=== PATIENT | male | born 1945 | race Caucasian/White ===

== ENCOUNTER → 2016-07-29 | Outpatient (CLI) | payer MEDICARE ==
[2016-07-29 10:52] LABS: Basophils # (A) 0.1 k/uL (0-0.2); Basophils % (A) 1 %; CH 28.8; CHCM 33.1; Eosinophils # (A) 0.4 k/uL (0-0.7); Eosinophils % (A) 5 %; HCT 38.4 % (39.0-53.0); HDW 3.02; HGB 12.7 gm/dL (13.0-17.5); Luc # (Auto) 0.11; Luc % (Auto) 1; Lymphocytes # (A) 1.2 k/uL (1.0-4.8); Lymphocytes % (A) 16 %; MCHC 33.1 g/dL (31.0-37.0); MCV 87.4 fL (80.0-100.0); Mean Platelet Volume 8.7; Monocytes # (A) 0.5 k/uL (0-1.0); Monocytes % (A) 7 %; Neutrophils # (A) 5.4 k/uL (1.3-7.7); Neutrophils % (A) 70 %; RBC 4.39 m/uL (4.30-5.90); RDW 15.1 % (11.5-15.5); WBC 7.7 k/uL (3.8-10.6); WBC (Perox) 7.44
[2016-07-29 10:54] LABS: Appearance,Urine Turbid (Clear); Bacteria,Urine Moderate /hpf; Bilirubin,Urine Negative (Negative); Glucose,Urine (UA) Negative (Negative); Ketones,Urine Negative (Negative); Leukocyte Esterase,Urine Large (Negative); Mucus,Urine Few /hpf; Nitrite,Urine Negative (Negative); Particle Count 7306; Protein,Urine 2+ (Negative); Specific Gravity,Urine 1.016 (1.001-1.035); UA Billing (MACRO vs. MICRO) MICRO; Urobilinogen,Urine <2.0 mg/dL (<2.0); WBC,Urine >182 /hpf (0-5)
[2016-07-29 11:24] LABS: Anion Gap 13 mmol/L; Blood Urea Nitrogen 24 mg/dL (9-20); Calcium 9.5 mg/dL (8.4-10.2); Carbon Dioxide 28 mmol/L (22-30); Chloride 102 mmol/L (98-107); Glucose 149 mg/dL (74-99); Non-African American GFR(MDRD) >60 (>60 ml/min/1.73 sqM); Potassium 4.7 mmol/L (3.5-5.1); Sodium 143 mmol/L (137-145)
== END | disposition home or self-care (01) ==
LOC: LABPAT 09:26
PROVIDERS: ATTEND Urology
DX: Z01.812 Encounter for preprocedural laboratory examination (principal); R35.0 Frequency of micturition; E10.9 Type 1 diabetes mellitus without complications; N35.9 Urethral stricture, unspecified; I10 Essential (primary) hypertension
CPT/HCPCS: 80048; 81001; 85025; 87086

== ENCOUNTER 2016-08-05 09:39 | Day surgery (SDC) | payer MEDICARE ==
[~2016-08-05 09:39] MED LIST: DEXAMETHASONE SOD PHOSPHATE 10 MG/ML 1 ML VIAL IV ONE; GENTAMICIN 220 MG in SODIUM CHLORIDE 0.9% 100 ML IVPB ONE; HYDROmorphone 1 MG/ML 1 ML SYRINGE IVP PRN; LACTATED RINGERS 1,000 ML IV SCH; LIDOCAINE 1% 20 ML VIAL (10MG/ML) FOR IV START INTRADERMA PRN
[2016-08-05 10:21] LABS: Glucose,Whole Blood 101 mg/dL (75-99)
[2016-08-05] MEDS ORDERED: FLUCONAZOLE IN NACL,ISO-OSM 100 MG in SALINE 1 50ML.BAG IVPB STA (10:23)
[2016-08-05] MEDS ORDERED: ONDANSETRON 4 MG/2 ML VIAL IVP ONE (10:25)
[2016-08-05] MEDS ORDERED: PROPOFOL 10 MG/ML 20 ML VIAL IV ONE (10:43)
[2016-08-05] MEDS ORDERED: fentaNYL (PF) 50 MCG/ML 2 ML AMP ONE (10:43)
[2016-08-05] MEDS ORDERED: SUCCINYLCHOLINE CHLORIDE 100 MG/5 ML SYR IV ONE (10:43)
[2016-08-05] MEDS ORDERED: ePHEDrine 50 MG/ML 1 ML AMP ONE (10:43)
[2016-08-05] MEDS ORDERED: LIDOCAINE 1% INJ 10MG/ML (20 ML MDV) ONE (10:43)
[2016-08-05] MEDS ORDERED: GLYCOPYRROLATE 0.2 MG/ML 2 ML VIAL ONE (10:43)
[2016-08-05] MEDS ORDERED: MIDAZOLAM 2 MG/2 ML VIAL ONE (10:43)
--- NOTE | 2016-08-05 12:00 | P.OP ---
Date of Procedure: 08/05/16 Preoperative Diagnosis: Chronic urethral stricture disease, chronic urine retention Postoperative Diagnosis: Same Procedure(s) Performed: Cystoscopy, direct vision internal urethrotomy, percutaneous placement of suprapubic cystostomy, placement of urethral Guadalupe Disposition: PACU Indications for Procedure: The patient is a 70-year-old with chronic panurethral stricturing that is severe. He has had multiple DVIU's in the past. He declines referral to a major reconstructive urologist for stricture repair. He would like a catheter. Do not recommend a urethral catheter due to the stricture therefore he will have a suprapubic cystostomy. Try to do this through the cysto with the notched sound. Description of Procedure: The patient is brought to the operating suite and given a successful general endotracheal anesthesia. He's placed lithotomy position with a sterile genital and abdominal prep and drape. I passed the 20-Belarusian direct vision urethrotome into the urethral meatus and it passes just beyond the fossa navicularis. There is panurethral stricture all the way to the verumontanum. With the direct vision urethrotome I cut at 12:00 to slowly advance the urethrotome into the bulbar urethra. The strictures extremely dense there. I passed an 035 wire into the bladder. Over the wire at 12:00 I cut back through the membranous urethra. I then am able to pass the scope into the bladder. The prostate is not obstructing. The bladder wall is trabeculated. I removed the direct vision urethrotome and attempt to pass a curved notch sound into the bladder but cannot do so. I reintroduced urethrotome and cut further in the membranous urethra but again failed to pass a curved notch sound. A false passage anterior at the membranous urethra. I thus reintroduced the scope into the bladder. I filled the bladder with water. Make a small cut above the pubis. I passed the percutaneous needle into the bladder. I removed the inner sheath and passed the tiny wire into the bladder. Cystoscopy confirmed endoscopically. Over the wire I passed the sheath to allow me to pass an 038 Super Stiff wire into the bladder. This is all done percutaneously and visualize directly with the endoscope. Once I have the 038 Super Stiff wire into the bladder over this I passed a [id number] NephroMax dilating balloon and dilated the tract into the bladder. Over the track I passed the working sheath into the bladder and its position is seen endoscopically. I removed the dilating balloon and pass an 18-Belarusian Guadalupe through the working sheath into the bladder its position is confirmed endoscopically. I removed the working sheath, inflate the balloon and pull the Guadalupe back into proper position of the bladder. It is then secured to the skin with 2-0 silk. Through the cystoscope I passed an 035 wire into the bladder. Over the wire I passed a 16-Belarusian Guadalupe into the bladder. Both catheters I attached a Guadalupe bag. The patient awake and returned recovery in good condition. He tolerated procedure well be discharged home upon recovery. Urethral catheter can be removed in 48 hours. The suprapubic tube will be in place for a month before being changed.
[2016-08-05 12:11] VITALS: RESP 16; TEMP 97.6
[2016-08-05 12:15] LABS: Glucose,Whole Blood 98 mg/dL (75-99)
[2016-08-05 13:43] VITALS: BP 183/76; PULSE 66
== END 2016-08-05 14:17 | disposition home or self-care (01) ==
LOC: OR 09:39
PROVIDERS: ATTEND Urology
DX: N35.9 Urethral stricture, unspecified (principal); R33.9 Retention of urine, unspecified; N39.0 Urinary tract infection, site not specified; I10 Essential (primary) hypertension; E11.9 Type 2 diabetes mellitus without complications; E03.9 Hypothyroidism, unspecified; M19.90 Unspecified osteoarthritis, unspecified site; K21.9 Gastro-esophageal reflux disease without esophagitis; I25.10 Atherosclerotic heart disease of native coronary artery without angina pectoris; Z95.1 Presence of aortocoronary bypass graft; Z79.2 Long term (current) use of antibiotics; Z79.84 Long term (current) use of oral hypoglycemic drugs; Z79.1 Long term (current) use of non-steroidal anti-inflammatories (NSAID); Z79.4 Long term (current) use of insulin; Z79.899 Other long term (current) drug therapy; Z88.5 Allergy status to narcotic agent
CPT/HCPCS: 52276; 51102; C1769 ×2; J2250; J1100; J2001; J3010; J1450; J1580; J0330; J2704

== ENCOUNTER 2016-09-17 02:25 | Inpatient (IN) | payer MEDICARE ==
[2016-09-17] MEDS ORDERED: NITROGLYCERIN OINT 1 INCH/GM PACKET TOPICAL STA (02:34)
[2016-09-17 03:02] LABS: Basophils # (A) 0.1 k/uL (0-0.2); Basophils % (A) 1 %; CH 28.4; CHCM 32.9; Eosinophils # (A) 0.6 k/uL (0-0.7); Eosinophils % (A) 5 %; HCT 41.6 % (39.0-53.0); HDW 3.13; HGB 13.3 gm/dL (13.0-17.5); Luc # (Auto) 0.18; Luc % (Auto) 1; Lymphocytes # (A) 1.2 k/uL (1.0-4.8); Lymphocytes % (A) 10 %; MCH 27.7 pg (25.0-35.0); MCV 86.5 fL (80.0-100.0); Mean Platelet Volume 8.1; Monocytes # (A) 0.5 k/uL (0-1.0); Monocytes % (A) 4 %; Neutrophils # (A) 9.9 k/uL (1.3-7.7); Neutrophils % (A) 79 %; RBC 4.81 m/uL (4.30-5.90); WBC 12.4 k/uL (3.8-10.6); WBC (Perox) 12.93
--- NOTE | 2016-09-17 03:02 | XR ---
EXAM: XR Chest, 1 View. CLINICAL HISTORY: Reason: dyspnea TECHNIQUE: Frontal view of the chest. COMPARISON: 06/10/2016 FINDINGS: Lungs: Hypoventilatory examination. No focal consolidation, significant pleural effusion, or pneumothorax. Mild pulmonary vascular congestion. Pleural space: See above. Heart: Stable postoperative mediastinum and cardiomediastinal silhouette. Mediastinum: See above. Bones/joints: No acute osseous abnormality. IMPRESSION: Stable cardiomegaly. Mild pulmonary vascular congestion. No focal consolidation.
[2016-09-17 03:08] LABS: ALT 26 U/L (21-72); AST 20 U/L (17-59); Alkaline Phosphatase 124 U/L (38-126); Anion Gap 16 mmol/L; Blood Urea Nitrogen 26 mg/dL (9-20); Carbon Dioxide 25 mmol/L (22-30); Chloride 101 mmol/L (98-107); Glucose 201 mg/dL (74-99); Magnesium 1.5 mg/dL (1.6-2.3); Non-African American GFR(MDRD) >60 (>60 ml/min/1.73 sqM); Potassium 4.1 mmol/L (3.5-5.1); Sodium 142 mmol/L (137-145); Total Protein 8.4 g/dL (6.3-8.2)
[2016-09-17 03:32] LABS: Creatine Kinase MB 1.2 ng/mL (0.0-2.4); Troponin I 0.015 ng/mL (0.000-0.034)
[2016-09-17 04:00] LABS: INR 1.2 (<1.1); Prothrombin Time 11.5 sec (9.0-12.0)
[2016-09-17] MEDS ORDERED: RX INFO: IV CONTRAST WAS GIVEN 1 EACH MISC MISCELLANE PRN (04:15)
[2016-09-17] MEDS ORDERED: HYDROcodone/APAP 7.5-325MG 1 EACH TAB PO PRN (04:16)
[2016-09-17 04:23] LABS: Amorphous Sediment,Urine Rare /hpf; Appearance,Urine Cloudy (Clear); Bacteria,Urine Rare /hpf; Bilirubin,Urine Negative (Negative); Glucose,Urine (UA) Trace (Negative); Ketones,Urine Negative (Negative); Leukocyte Esterase,Urine Small (Negative); Mucus,Urine Few /hpf; Nitrite,Urine Positive (Negative); Particle Count 26613; Protein,Urine 3+ (Negative); RBC,Urine 34 /hpf (0-5); Specific Gravity,Urine 1.019 (1.001-1.035); Squamous Epithelial Cell,Urine 1 /hpf (0-4); UA Billing (MACRO vs. MICRO) MICRO; WBC,Urine 57 /hpf (0-5)
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
[2016-09-17] MEDS ORDERED: PANTOPRAZOLE 40 MG TABLET PO SCH (04:30)
[2016-09-17] MEDS: FUROSEMIDE 10 MG/ML 4 ML VIAL IV SCH ×2 (05:19→17:37)
--- NOTE | 2016-09-17 05:44 | CT ---
EXAM: CT Angiography Chest With Intravenous Contrast. CLINICAL HISTORY: Reason: dyspnea TECHNIQUE: Axial computed tomographic angiography images of the chest with intravenous contrast using pulmonary embolism protocol. CTDI is 8.54, 24. 19, 24.19, 193.54, 1358.55 mGy and DLP is 1609 mGy-cm MIP reconstructed images were created and reviewed. COMPARISON: CXR 09/17/2016 FINDINGS: Limitations: Timing of the contrast bolus and respiratory motion. Pulmonary arteries: No central pulmonary embolus. Aorta: Atherosclerosis of the thoracic aorta, coronary arteries, and great vessels. No thoracic aortic dissection. Lungs: Bilateral dependent densities are favored to represent atelectasis. Minimal smooth interlobular septal thickening is compatible with mild interstitial edema. No mass. Pleural space: Small bilateral pleural effusions. No pneumothorax. Heart: No pericardial effusion. Mediastinum: Postoperative mediastinum. Bones/joints: No acute fracture. No dislocation. Soft tissues: Unremarkable. Lymph nodes: Unremarkable. No enlarged lymph nodes. Gallbladder and bile ducts: The gallbladder is absent. Spleen: Splenomegaly. IMPRESSION: No central pulmonary embolus. Small bilateral pleural effusions. Mild interstitial edema.
[2016-09-17 06:25] LABS: Glucose,Whole Blood 244 mg/dL (75-99)
[2016-09-17] MEDS ORDERED: NON-FORMULARY DRUG (Metformin Hcl [Metformin Hcl] 1,000 MG) PO SCH (09:00)
[2016-09-17] MEDS: PENTOXIFYLLINE 400 MG TABLET.ER PO SCH ×3 (09:05→17:37)
[2016-09-17] MEDS: FLUCONAZOLE 100 MG TAB PO SCH (09:05)
[2016-09-17] MEDS: LEVOTHYROXINE 75 MCG TAB PO SCH (09:06)
[2016-09-17] MEDS: MULTIVITAMINS, THERA 1 EACH TAB PO SCH (09:06)
[2016-09-17] MEDS: ATENOLOL 50 MG TAB PO SCH (09:06)
[2016-09-17 09:57] LABS: Creatine Kinase MB 8.7 ng/mL (0.0-2.4); Troponin I 0.785 ng/mL (0.000-0.034)
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
[2016-09-17 12:24] LABS: Glucose,Whole Blood 340 mg/dL (75-99)
[2016-09-17] MEDS: NITROGLYCERIN OINT 1 INCH/GM PACKET TOPICAL SCH ×4 (12:29→20:25)
[2016-09-17] MEDS: INSULIN LISPRO (humaLOG) 300 UNIT/3 ML VIAL SQ SCH ×3 (12:30→20:48)
[2016-09-17] MEDS: ASPIRIN 81 MG CHEW PO SCH (12:30)
[2016-09-17] MEDS ORDERED: HEPARIN SODIUM,PORCINE 5,000 UNIT/ML 1 ML VIAL IV ONE (15:12)
[2016-09-17] MEDS ORDERED: HEPARIN SODIUM,PORCINE 5,000 UNIT/ML 1 ML VIAL IV PRN (15:12)
[2016-09-17 16:04] LABS: Creatine Kinase MB 10.6 ng/mL (0.0-2.4); Troponin I 2.25 ng/mL (0.000-0.034)
[2016-09-17] MEDS: hydrALAZINE HCL 25 MG TAB PO SCH ×2 (16:08→20:24)
[2016-09-17] MEDS: HEPARIN SODIUM,PORCINE/D5W PMX 25,000 UNIT in DEXTROSE/WATER 1 500ML.BAG IV SCH (16:09)
[2016-09-17 16:47] LABS: Hemoglobin A1C 7.5 % (4.2-6.1)
--- NOTE | 2016-09-17 17:06 | CONS ---
DATE OF CONSULTATION: ATTENDING: Dr. Evens Lopez Mr. Wang is a 71-year-old male with known history of coronary artery disease, status post coronary artery bypass grafting in 1999, history of hypertension, hyperlipidemia, and diabetes mellitus, who presented with symptoms of acute dyspnea. Apparently, he went to bed and suddenly woke up very short of breath. He had no associated chest discomfort, came into the emergency room and was noted to be in heart failure. Patient is average in exercise tolerance, has some dyspnea on exertion. He has chronic peripheral edema. No PND. He has chronic orthopnea related to his lower back pain. He has no dizziness, palpitation. No syncope. He has been followed by Dr. Glass at [facility] and apparently has not been told that he had a prior myocardial infarction nor congestive heart failure, but I do not have the evaluation of his prior echo done not too long ago. He has no history of documented arrhythmia. His coronary risk factors are remarkable for hypertension, hyperlipidemia, and diabetes mellitus. His medications include metformin 1 gram twice a day, glipizide 2.5 mg daily, amlodipine 10 mg daily, simvastatin 40 mg daily, Trental 400 mg 3 times a day, lisinopril 20 mg daily, levothyroxine, insulin, cephalexin and Tenormin. REVIEW OF SYSTEMS: RESPIRATORY SYSTEM: Had dyspnea on exertion. No recent wheezing or cough. GI: No recent GI bleeding. No peptic ulcer disease. SYSTEM: No dysuria or hematuria. NERVOUS SYSTEM: No history of stroke or seizure. PHYSICAL EXAMINATION: He is a 71-year-old male, alert, oriented, in no apparent distress, morbidly obese. Blood pressure 150/90 with a heart rate in the 80s. HEAD: Normocephalic. EYES: Sclerae anicteric. NECK: Good upstroke. No bruit. LUNGS: With rales at both bases. HEART: Regular rate and rhythm. S1, S2 with systolic murmur heard at the base. No diastolic murmur. No rub. ABDOMEN: Supple, obese, nontender. EXTREMITIES: +2 edema with chronic skin changes. Lab data revealed a BUN and creatinine of 26 and 0.9, magnesium 1.5, troponin 0.015 and 0.785. Hemoglobin of 13.3, white blood cells 12.4. EKG revealed sinus mechanism with a left bundle branch block. Chest x-ray shows evidence of congestive heart failure as well as cardiomegaly. IMPRESSION: 1. Acute episode of congestive heart failure with mild elevation of troponin. Patient with known history of coronary artery disease raising possibility of ischemic event. 2. Status post coronary artery bypass grafting 17 years ago. 3. History of hypertension. 4. Hyperlipidemia. 5. Diabetes mellitus. 6. Left bundle branch block, probably chronic. RECOMMENDATIONS: I will try to obtain the prior work-up. I will obtain an echocardiogram with Doppler. He will be started on heparin. He will be continued on diuresis as initiated. His renal function will be followed closely. I will add to his regimen hydralazine to optimize his blood pressure. The patient would most likely require coronary angiography to assess his status because of his presentation, I have discussed those findings with him. He would like to talk to his primary director of institutional giving and make a decision where he wants this to be done. In the meantime, I will try to obtain the prior work-up. Thank you for this consult. We will follow with you.
[2016-09-17 17:07] LABS: Glucose,Whole Blood 351 mg/dL (75-99)
[2016-09-17] MEDS ORDERED: ATENOLOL 25 MG TAB PO SCH (17:30)
[2016-09-17] MEDS ORDERED: Magnesium Replacement Protocol 1 EACH MISC MISCELLANE PRN (19:41)
[2016-09-17 20:44] LABS: Glucose,Whole Blood 275 mg/dL (75-99)
[2016-09-17] MEDS: MAGNESIUM SULFATE-D5W PMX 1 GM in DEXTROSE/WATER 1 100ML.BAG IVPB SCH ×2 (20:47→23:03)
[2016-09-17] MEDS ORDERED: INSULIN GLARGINE 100 UNIT/ML 10 ML VIAL SQ SCH (21:00)
[2016-09-17] MEDS ORDERED: ATORVASTATIN 20 MG TAB PO SCH (21:00)
[2016-09-17] MEDS ORDERED: amLODIPine 10 MG TAB PO SCH (21:00)
[2016-09-17] MEDS ORDERED: ATORVASTATIN 40 MG TAB PO SCH (21:00)
[2016-09-17] MEDS ORDERED: LISINOPRIL 20 MG TAB PO SCH (21:00)
[2016-09-17 22:11] LABS: Potassium 4.1 mmol/L (3.5-5.1)
[2016-09-18] MEDS: FUROSEMIDE 10 MG/ML 4 ML VIAL IV SCH (04:55)
[2016-09-18 06:35] LABS: Basophils % (A) 0 %; CH 28.4; CHCM 32.7; Eosinophils # (A) 0.2 k/uL (0-0.7); Eosinophils % (A) 1 %; HCT 37.5 % (39.0-53.0); HDW 2.96; HGB 11.9 gm/dL (13.0-17.5); Luc # (Auto) 0.17; Luc % (Auto) 1; Lymphocytes # (A) 1.3 k/uL (1.0-4.8); Lymphocytes % (A) 10 %; MCH 27.8 pg (25.0-35.0); MCHC 31.8 g/dL (31.0-37.0); MCV 87.3 fL (80.0-100.0); Mean Platelet Volume 7.7; Monocytes # (A) 0.4 k/uL (0-1.0); Monocytes % (A) 4 %; Neutrophils # (A) 10.4 k/uL (1.3-7.7); Neutrophils % (A) 84 %; RBC 4.29 m/uL (4.30-5.90); RDW 15.1 % (11.5-15.5); WBC 12.5 k/uL (3.8-10.6); WBC (Perox) 13.35
[2016-09-18 06:51] LABS: Anion Gap 13 mmol/L; Blood Urea Nitrogen 33 mg/dL (9-20); Calcium 9.5 mg/dL (8.4-10.2); Carbon Dioxide 30 mmol/L (22-30); Chloride 96 mmol/L (98-107); Glucose 201 mg/dL (74-99); Non-African American GFR(MDRD) >60 (>60 ml/min/1.73 sqM); Sodium 139 mmol/L (137-145)
[2016-09-18 06:53] LABS: Potassium 4.2 mmol/L (3.5-5.1)
[2016-09-18 06:54] LABS: Glucose,Whole Blood 208 mg/dL (75-99)
[2016-09-18] MEDS: ATENOLOL 50 MG TAB PO SCH (08:05)
[2016-09-18] MEDS: LEVOTHYROXINE 75 MCG TAB PO SCH (08:05)
[2016-09-18] MEDS: ASPIRIN 81 MG CHEW PO SCH (08:05)
[2016-09-18] MEDS: PENTOXIFYLLINE 400 MG TABLET.ER PO SCH ×2 (08:06→11:57)
[2016-09-18] MEDS: hydrALAZINE HCL 25 MG TAB PO SCH (08:06)
[2016-09-18] MEDS: FLUCONAZOLE 100 MG TAB PO SCH (08:07)
[2016-09-18] MEDS: INSULIN LISPRO (humaLOG) 300 UNIT/3 ML VIAL SQ SCH ×2 (08:07→11:59)
[2016-09-18] MEDS: MULTIVITAMINS, THERA 1 EACH TAB PO SCH (08:07)
[2016-09-18 08:34] VITALS: RESP 19; TEMP 97
[2016-09-18] MEDS ORDERED: PNEUMOCOCCAL VACC-PNEUMOVAX 23 25 MCG/0.5 ML VIAL IM ONE (09:00)
[2016-09-18] MEDS ORDERED: ISOSORBIDE MONONITRATE ER 30 MG TAB.ER.24H PO SCH (09:30)
--- NOTE | 2016-09-18 10:08 | ECHOF ---
Referral Reason:cad MEASUREMENTS -------- HEIGHT: 175.3 cm WEIGHT: 153.8 kg BP: 150/98 RVIDd: 3.6 cm (< 3.3) IVSd: 1.5 cm (0.6 - 1.1) LVIDd: 5.4 cm (3.9 - 5.3) LVPWd: 1.5 cm (0.6 - 1.1) IVSs: 2.3 cm LVIDs: 3.5 cm LVPWs: 2.5 cm LA Diam: 3.9 cm (2.7 - 3.8) LAESV Index (A-L): 34.90 ml/m Ao Diam: 3.3 cm (2.0 - 3.7) AV Cusp: 2.5 cm (1.5 - 2.6) MV EXCURSION: 21.518 mm (> 18.000) MV EF SLOPE: 133 mm/s (70 - 150) EPSS: 0.8 cm RAP: 5.00 mmHg RVSP: 33.01 mmHg FINDINGS -------- This was a technically difficult study with suboptimal apical views. The left ventricular size is normal. There is moderate concentric left ventricular hypertrophy. Overall left ventricular systolic function is low-normal with, an EF between 50 - 55 %. The right ventricle is mildly enlarged. LA is moderately dilated 34-39 ml/m2 The right atrium was not well visualized. 1.5mg of Definity was utilized for enhancement of images Aortic valve is trileaflet and is mildly thickened. The mitral valve leaflets are mildly thickened. Mild mitral annular calcification present. There is trace to mild mitral regurgitation. Mild tricuspid regurgitation present. Right ventricular systolic pressure is normal at < 35 mmHg. The pulmonic valve was not well visualized. The aortic root size is normal. There is no pericardial effusion. CONCLUSIONS -------- 1. This was a technically difficult study with suboptimal apical views. 2. The mitral valve leaflets are mildly thickened. 3. Mild mitral annular calcification present. 4. There is trace to mild mitral regurgitation. 5. Mild tricuspid regurgitation present. 6. Right ventricular systolic pressure is normal at < 35 mmHg. 7. The pulmonic valve was not well visualized. 8. The aortic root size is normal. 9. There is no pericardial effusion. 10. The left ventricular size is normal. 11. There is moderate concentric left ventricular hypertrophy. 12. Overall left ventricular systolic function is low-normal with, an EF between 50 - 55 %. 13. The right ventricle is mildly enlarged. 14. LA is moderately dilated 34-39 ml/m2 15. The right atrium was not well visualized. 16. 1.5mg of Definity was utilized for enhancement of images 17. Aortic valve is trileaflet and is mildly thickened. TRANSFER IRON OPERATOR: Becky Montana RDCS
[2016-09-18 11:11] LABS: Glucose,Whole Blood 252 mg/dL (75-99)
[2016-09-18 11:37] VITALS: BMI 50.0
[2016-09-18 11:40] LABS: Anion Gap 11 mmol/L; Blood Urea Nitrogen 33 mg/dL (9-20); Calcium 9.3 mg/dL (8.4-10.2); Carbon Dioxide 29 mmol/L (22-30); Chloride 95 mmol/L (98-107); Glucose 256 mg/dL (74-99); Non-African American GFR(MDRD) >60 (>60 ml/min/1.73 sqM); Potassium 3.9 mmol/L (3.5-5.1); Sodium 135 mmol/L (137-145)
[2016-09-18] MEDS: NITROGLYCERIN OINT 1 INCH/GM PACKET TOPICAL SCH (12:02)
--- NOTE | 2016-09-18 12:07 | P.PN ---
Subjective Principal diagnosis: Pulmonary edema This is a 71-year-old gentleman with known history of coronary artery disease and prior bypass surgery, hypertension, hyperlipidemia, diabetes, who presented to the hospital primarily with symptoms of progressive dyspnea. He was found to be in pulmonary edema and initiated on IV Lasix. Patient follows with a miller head assistant wet process in [facility]. Also ruled in for non-Q-wave myocardial infarction. Echocardiogram with Doppler study was performed which revealed an ejection fraction of 50-55%. Moderate concentric LVH. Patient continues to be on IV Lasix, 40 mg every 12 hourly. Blood pressure today 154/78 with a heart rate in the 60s. 96% on room air. Patient was seen and examined today, continues to have bilateral rales and peripheral edema. Patient was quite eager to be discharged home to follow-up with his miller head assistant wet process, Dr. Guerrier had a lengthy discussion with the patient explaining that he needed to be diuresed further prior to being stable enough for discharged. I also explained to the patient that he did have a myocardial infarction and may require cardiac catheterization. If the patient does go home today he was advised that he needs to do so , against medical advice. Objective - Vital Signs Vital signs: Vital Signs Temp 97 F L 09/18/16 08:00 Pulse 67 09/18/16 04:00 Resp 19 09/18/16 08:00 BP 156/79 09/18/16 08:00 Pulse Ox 96 09/18/16 08:00 Intake & Output 09/17/16 09/18/16 09/18/16 18:59 06:59 18:59 Intake Total 257 298 Output Total 1700 1200 Balance -1700 -943 298 Weight 153.9 kg 153.7 kg 153.7 kg Intake: Intake, IV Titration 257 Amount Heparin Sodium,Porcine/ 257 D5w Pmx 25,000 unit In Dextrose/Water 1 500ml. bag @ 6.5 UNITS/KG/HR 20 mls/hr IV .Q24H [facility] Rx#: [id number] Oral 298 Output: Urine 1700 1200 Other: Voiding Method Indwelling Catheter Indwelling Catheter Indwelling Catheter - Exam PHYSICAL EXAMINATION: HEENT: Head is atraumatic, normocephalic. Pupils equal, round. Neck is supple. There is elevated jugular venous pressure. HEART EXAMINATION: Heart S1 and S2 systolic murmur is heard. CHEST EXAMINATION: Lungs reveal rales to bilateral bases. ABDOMEN: Soft, obese, nontender. Bowel sounds are heard. No organomegaly noted. EXTREMITIES: 2+ peripheral pulses with 2+ evidence of peripheral edema and no calf tenderness noted. Chronic venous stasis. NEUROLOGIC patient is awake, alert and oriented -3. . - Labs CBC & Chem 7: 09/18/16 06:19 09/18/16 10:57 Labs: Abnormal Lab Results - Last 24 Hours (Table) 09/17/16 09/17/16 09/17/16 Range/Units 12:22 15:12 17:06 WBC (3.8-10.6) k/uL RBC (4.30-5.90) m/uL Hgb (13.0-17.5) gm/dL Hct (39.0-53.0) % Neutrophils # (1.3-7.7) k/uL Sodium (137-145) mmol/L Chloride (98-107) mmol/L BUN (9-20) mg/dL Glucose (74-99) mg/dL POC Glucose (mg/dL) 340 H 351 H (75-99) mg/dL CK-MB (CK-2) 10.6 H* (0.0-2.4) ng/mL Troponin I 2.250 H* (0.000-0.034) ng/mL 09/17/16 09/17/16 09/18/16 Range/Units 20:36 21:44 06:19 WBC (3.8-10.6) k/uL RBC (4.30-5.90) m/uL Hgb (13.0-17.5) gm/dL Hct (39.0-53.0) % Neutrophils # (1.3-7.7) k/uL Sodium (137-145) mmol/L Chloride 96 L 96 L (98-107) mmol/L BUN 33 H (9-20) mg/dL Glucose 201 H (74-99) mg/dL POC Glucose (mg/dL) 275 H (75-99) mg/dL CK-MB (CK-2) (0.0-2.4) ng/mL Troponin I (0.000-0.034) ng/mL 09/18/16 09/18/16 09/18/16 Range/Units 06:19 06:37 10:57 WBC 12.5 H (3.8-10.6) k/uL RBC 4.29 L (4.30-5.90) m/uL Hgb 11.9 L (13.0-17.5) gm/dL Hct 37.5 L (39.0-53.0) % Neutrophils # 10.4 H (1.3-7.7) k/uL Sodium 135 L (137-145) mmol/L Chloride 95 L (98-107) mmol/L BUN 33 H (9-20) mg/dL Glucose 256 H (74-99) mg/dL POC Glucose (mg/dL) 208 H (75-99) mg/dL CK-MB (CK-2) (0.0-2.4) ng/mL Troponin I (0.000-0.034) ng/mL /10/02 Range/Units 11:09 WBC (3.8-10.6) k/uL RBC (4.30-5.90) m/uL Hgb (13.0-17.5) gm/dL Hct (39.0-53.0) % Neutrophils # (1.3-7.7) k/uL Sodium (137-145) mmol/L Chloride (98-107) mmol/L BUN (9-20) mg/dL Glucose (74-99) mg/dL POC Glucose (mg/dL) 252 H (75-99) mg/dL CK-MB (CK-2) (0.0-2.4) ng/mL Troponin I (0.000-0.034) ng/mL Assessment and Plan (1) Diastolic CHF, acute on chronic Status: Acute (2) Hx of CABG Status: Acute (3) Non-Q wave infarction Status: Acute (4) HTN (hypertension) Status: Acute (5) Hyperlipemia Status: Acute (6) Diabetes Status: Acute (7) LBBB (left bundle branch block) Status: Acute Plan: From cardiology's perspective, patient has been advised to stay in the hospital , continue diuresis with IV Lasix. Check daily lytes BUN and creatinine. May require cardiac catheterization once the congestive heart failure has cleared. DNP note has been reviewed, I agree with a documented findings and plan of care. Patient was seen and examined.
[2016-09-18 13:08] VITALS: BP 173/79; PULSE 58
[2016-09-18] MEDS: HEPARIN SODIUM,PORCINE/D5W PMX 25,000 UNIT in DEXTROSE/WATER 1 500ML.BAG IV SCH (14:16)
--- NOTE | 2016-09-19 07:47 | DS ---
DATE OF ADMISSION: 09/17/2016 DATE OF DISCHARGE: 09/18/2016 Date left against medical advice: 09/18/2016 FINAL DIAGNOSIS(ES): 1. Acute congestive heart failure exacerbation with underlying acute myocardial infarction. 2. Acute non-Q-wave myocardial infarction, present on admission. 3. Diabetes mellitus type 2, chronically on insulin. 4. Gastroesophageal reflux disease. 5. Essential hypertension, uncontrolled on presentation. 6. Primary osteoarthritis multiple joints, bilaterally. 7. Hypothyroidism. 8. Hiatal hernia with chronic urethral stricture with chronic suprapubic catheter. The patient showing asymptomatic bacteria. 9. 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 10. Coronary artery disease with prior history of CABG in 2000. 11. Morbid obesity with body mass index 50.1. This is a patient who presented with CHF along with acute [place]. Troponin went from up from 0.7 to 2.2. Patient given Lasix and other medications. Patient seen by Dr. Guerrier from cardiology. They were considered cardiac catheterization when CHF better. Patient in the meantime decided to leave against medical advice. On exam, earlier today. RESPIRATORY: Effort normal. LUNGS: Diminished breath sounds. PSYCH: Alert and oriented x3. DISPOSITION: Patient left AGAINST MEDICAL ADVICE.
== END 2016-09-18 15:28 | disposition home health service (06) | DRG 280 ==
LOC: EC 02:25 → 6SEL 04:12 → 6ICU 05:51 → 6SEL 18:21
PROVIDERS: ADMIT Hospitalist; ATTEND Hospitalist
PROC: 3E0234Z Introduction of Serum, Toxoid and Vaccine into Muscle, Percutaneous Approach (ICD-10-PCS; principal; 2016-09-17)
DX: I21.4 Non-ST elevation (NSTEMI) myocardial infarction (principal); I50.33 Acute on chronic diastolic (congestive) heart failure; E11.42 Type 2 diabetes mellitus with diabetic polyneuropathy; Z68.43 Body mass index [BMI] 50.0-59.9, adult; I44.7 Left bundle-branch block, unspecified; I11.0 Hypertensive heart disease with heart failure; E66.01 Morbid (severe) obesity due to excess calories; Z95.1 Presence of aortocoronary bypass graft; Z23 Encounter for immunization; E03.9 Hypothyroidism, unspecified; K21.9 Gastro-esophageal reflux disease without esophagitis; M19.91 Primary osteoarthritis, unspecified site; K44.9 Diaphragmatic hernia without obstruction or gangrene; N35.9 Urethral stricture, unspecified; I25.10 Atherosclerotic heart disease of native coronary artery without angina pectoris; L30.9 Dermatitis, unspecified; Z71.3 Dietary counseling and surveillance; Z93.51 Cutaneous-vesicostomy status; Z90.49 Acquired absence of other specified parts of digestive tract; Z98.42 Cataract extraction status, left eye; Z88.5 Allergy status to narcotic agent; Z87.442 Personal history of urinary calculi; E78.5 Hyperlipidemia, unspecified; Z79.84 Long term (current) use of oral hypoglycemic drugs; Z79.4 Long term (current) use of insulin; Z79.1 Long term (current) use of non-steroidal anti-inflammatories (NSAID); Z79.899 Other long term (current) drug therapy
CPT/HCPCS: 36415; 71010; 71275; 80048; 80051; 80053; 81001; 82550; 82553; 83036; 83735; 83880; 84484; 85025; 85379; 85610; 85730; 87077; 87086; 87186; 93005; 93306; 94660; 96374; 99291